=== PATIENT | male | born 1960 | race Caucasian/White ===

== ENCOUNTER 2016-10-26 13:27 | Day surgery (SDC) | payer OTHER ==
[~2016-10-26] VITALS: Ht 177.8 cm; Wt 88.5 kg
[~2016-10-26 13:27] MED LIST: 0.9% Sodium Chloride 1,000 ML IV SCH; Sodium Chloride LOK Flush 10 mL Syringe IV PRN; fentaNYL-PF 50 mCg/mL 2 mL Inj IVPUSH PRN
[2016-10-26] MEDS ORDERED: fentaNYL-PF 50 mCg/mL 2 mL Inj IVPUSH ONE (13:28)
[2016-10-26 13:44] VITALS: BP 131/70; PULSE 84; RESP 16; O2SAT 97
[2016-10-26] MEDS ORDERED: ALBU8.5H2 INHALATION (13:46)
[2016-10-26 14:25] VITALS: BP 147/77; PULSE 77; RESP 16; O2SAT 98
[2016-10-26 14:32] VITALS: BP 137/78; PULSE 79; RESP 16; O2SAT 96
--- NOTE | 2016-10-26 22:13 | ENDO ---
[address] [address] ENDOSCOPY PROCEDURE PATIENT: MIKE DE LOS SANTOS : 1960 MR#: [id number] ADMIT: 10/26/2016 JOB ID: [id number] DATE OF SERVICE: 10/26/2016 OPERATION: Colonoscopy hot snare polypectomy. PREOPERATIVE DIAGNOSIS(ES): Guaiac-positive stools. POSTOPERATIVE DIAGNOSIS(ES): A 5 mm sigmoid polyp, removed by hot snare polypectomy. ANESTHESIA: Fentanyl 50 mcg, Versed at 2 mg IV administered. COMPLICATIONS: None. DESCRIPTION OF PROCEDURE: After risks and benefits were explained to the patient, informed consent was obtained. After anesthesia administered, colonoscope was inserted per rectum to cecum and mucosa carefully examined. Prep of the patient was excellent. After procedure was done, the scope withdrawn and procedure terminated. FINDINGS: Upon inspection of the anus, no masses, hemorrhoids, ulcers were seen throughout the entire examination. There was a 5 mm sigmoid colon polyp removed by hot snare polypectomy. No other polyps or masses were seen. Retroflexion was normal. IMPRESSION: A 5 mm sigmoid polyp, removed by hot snare polypectomy. RECOMMENDATION: Await pathology results. If tubular adenoma, then repeat colonoscopy in five years.
--- NOTE | 2016-10-28 10:00 | PATH ---
SURGICAL PATHOLOGY Attending Physician:Mahamed Dupree MD CASE STATUS: Signed Out PATIENT NAME: MIKE DE LOS SANTOS PID: [id number] : 1960 DATE COLLECTED:10/26/2016 00:00 SPECIMEN: Colon, Biopsy CLINICAL HISTORY: 1. SIGMOID COLON POLYP FINAL DIAGNOSIS: 1.SIGMOID COLON POLYP: TUBULAR ADENOMA. ICD10 D12.5 GROSS DESCRIPTION: The specimen is received in one formalin filled container labeled with the patient's name, sublabeled "sigmoid colon polyp" and consists of a 0.5 x 0.4 x 0.4 CM portion of tissue which is entirely submitted in one cassette. 10/27/2016 DAC MICRO DESCRIPTION: See diagnosis. ICD-9 CODES: CPT CODES: 1: 22949 Electronically Signed Out Jose Alejandro Tello MD [facility] [address], [place] [address] Technical component performed at [facility], [address] [place] [address] Ave[address], [place], [place], [address]
== END 2016-10-26 23:59 | disposition home or self-care (01) ==
LOC: END 13:27
PROVIDERS: ATTEND Internal Medicine Gastroenterology
DX: D12.5 Benign neoplasm of sigmoid colon (principal); R19.5 Other fecal abnormalities
CPT/HCPCS: 45385; 88305; 99152; J2250; J3010; J7030